=== PATIENT | female | born 1965 ===

== ENCOUNTER 2024-07-13 09:43 | Outpatient (REF) | payer OTHER, SELFPAY | END 2024-07-13 09:44 | disposition home or self-care (01) | LOC: CF 09:43 | DX: Z13.89 Encounter for screening for other disorder (principal) ==

== ENCOUNTER 2024-07-23 09:51 | Outpatient (AMB) | payer OTHER, MEDICAID, SELFPAY ==
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
== END 2024-07-23 10:56 | disposition home or self-care (01) ==
PROVIDERS: PCP Student in an Organized Health Care Education/Training Program; Referring Provider Physical Medicine & Rehabilitation; Visit Provider Physician Assistant
DX: M54.9 Dorsalgia, unspecified (principal)
CPT/HCPCS: 99204

== ENCOUNTER → 2024-07-23 09:51 | Outpatient (BNVA) | payer OTHER, MEDICAID, SELFPAY | PROVIDERS: PCP Student in an Organized Health Care Education/Training Program; Referring Provider Physical Medicine & Rehabilitation; Visit Provider Physician Assistant | DX: M54.9 Dorsalgia, unspecified (principal) | CPT/HCPCS: 99202 ==